=== PATIENT | male | born 1955 | race Hispanic/Latino ===

== ENCOUNTER 2018-07-13 04:20 | Emergency (ER) | payer BC ==
[~2018-07-13] VITALS: Ht 167.6 cm; Wt 65.8 kg
[2018-07-13] MEDS ORDERED: SODIUM CHLORIDE 0.9% 1000ML 1,000 ML IV ONE (05:00)
[2018-07-13] MEDS ORDERED: POTASSIUM CHLORIDE 10MEQ EA PO ONE (05:15)
--- NOTE | 2018-07-13 05:57 | Diagnostic Imaging Report ---
CT Abdomen And Pelvis with Intravenous Contrast INDICATION: Diarrhea ^[id number] ^[id number] TECHNIQUE: Thin collimation axial images obtained from the diaphragm to the level of the pubic symphysis following the uneventful administration of 100 cc of low osmolar, nonionic intravenous contrast. Dose reduction techniques used: Automated exposure control, adjustment of the mAs and/or kVp according to patient size, standardized low-dose protocol, and/or iterative reconstruction technique. RADIATION DOSE: Total DLP: 563.03 mGy*cm Estimated effective dose: (DLP x 0.015 x size factor) mSv CTDIvol has been reviewed. It is below the limits set by the Radiation Protocol Committee (RPC). COMPARISON: CT abdomen/pelvis 06/30/2011 ABDOMEN FINDINGS: Lung Bases: Multiple cystic spaces are redemonstrated measuring up to 2 cm suggestive of emphysema. Visualized portion of the mediastinum is normal. Liver: Normal attenuation. No evidence for mass. Gallbladder: Absent. No biliary ductal dilatation. Pancreas: Normal attenuation without mass or ductal dilatation. Spleen: Normal in size. No evidence of mass.. Adrenal Glands: No evidence for mass. Kidneys: Right: Normal enhancement. No soft tissue mass. No hydronephrosis. Left: Normal enhancement. No soft tissue mass. No hydronephrosis. Lymph Nodes: No enlarged abdominal or retroperitoneal lymph nodes. Aorta: Normal in diameter PELVIS FINDINGS: Bowel: Stomach: Distended with food.. Small Bowel: Fluid distended small bowel loops without dilatation. No inflammation of the small bowel mesentery.. Large Bowel: Fluid throughout. No pericolonic inflammation. No diverticulosis. Semisolid stool in the rectum.. Appendix: Normal appendix. Bladder: Mild circumferential mural thickening. The prostate gland measures 4.5 x 5.8 cm in the axial plane. Peritoneum/retroperitoneum: No free fluid or fluid collection. Bones: Mild degenerative changes of the spine. No focal osseous lesions. Soft tissues: Unremarkable. IMPRESSION: 1. Distended fluid filled small bowel loops and fluid throughout the large bowel. This is suggestive of gastroenteritis with diffuse ileus. Normal appendix. 2. Prostate hypertrophy with bladder wall thickening suggestive of outlet obstruction. 3. Cholecystectomy. Signed by: Dr. Oscar Chou MD on 07/13/2018 5:53 AM
== END 2018-07-13 06:17 | disposition home or self-care (01) ==
LOC: FSED 04:20
DX: R10.13 Epigastric pain (principal); R19.7 Diarrhea, unspecified; E87.6 Hypokalemia; E86.0 Dehydration; K52.9 Noninfective gastroenteritis and colitis, unspecified
CPT/HCPCS: 74177; 80053; 81003; 85025; 99283; J7030

== ENCOUNTER 2024-07-14 03:06 | Emergency (ER) | payer BC ==
[~2024-07-14] VITALS: Ht 165.1 cm; Wt 66.2 kg
[~2024-07-14 03:06] MED LIST: COREG6.25 MG PO; FLOMAX0.4 MG PO; LEVOCETIRIZINE D5 MG PO; LOSARTAN POTAS100 MG PO; ONDANSETRON ODT4 MG PO; PANTOPRAZOLE SO40 MG PO
[2024-07-14] MEDS: MAGNESIUM/ALUMINUM/SIMETHICONE 30 ML UDC PO ONE (04:28)
[2024-07-14] MEDS: FAMOTIDINE 20 MG TAB PO ONE (04:28)
[2024-07-14] MEDS: LIDOCAINE VISC 2% SOLN 15 ML UDC PO ONE (04:28)
[2024-07-14] MEDS ORDERED: CIPROFLOXACIN (OPTH SOLN) 5 ML BTL OP SCH (06:00)
[2024-07-14 06:02] VITALS: PULSE 68; RESP 16; TEMP 97.6
[2024-07-14] MEDS ORDERED: PEPCID20 MG PO (06:34)
[2024-07-14] MEDS ORDERED: OMEPRAZOLE40 MG PO (06:35)
[2024-07-14 06:40] VITALS: BP 160/84; PULSE 68; RESP 18; TEMP 97.6; O2SAT 98
[2024-07-14] MEDS ORDERED: VENTOLIN HFA18 GM INH (06:56)
[2024-07-14] MEDS ORDERED: PREDNISONE50 MG PO (06:57)
== END 2024-07-14 06:46 | disposition home or self-care (01) ==
LOC: FSED 03:14
DX: R10.13 Epigastric pain (principal); K21.9 Gastro-esophageal reflux disease without esophagitis; R07.89 Other chest pain; I10 Essential (primary) hypertension; J45.909 Unspecified asthma, uncomplicated; Z11.52 Encounter for screening for COVID-19; R94.31 Abnormal electrocardiogram [ECG] [EKG]
CPT/HCPCS: 0223U; 71046; 80053; 80076; 82553; 83518 ×2; 84484; 85025; 87400; 93005; 99284

== ENCOUNTER → 2024-12-10 | Outpatient (REF) | payer BC ==
[~2024-12-10] MED LIST changes: +IOPAMIDOL 370 MG/ML 100 ML INFUS..BTL INJ ONE; +METOPROLOL TARTRATE 25 MG TAB ONE; +METOPROLOL TARTRATE INJ 1 MG/ML VIAL ONE; +NITROGLYCERIN 0.4 MG SUBL ONE; +OMEPRAZOLE40 MG PO; +PEPCID20 MG PO; +PREDNISONE50 MG PO; +SODIUM CHLORIDE 0.9% 100 ML ONE; +VENTOLIN HFA18 GM INH
[2024-12-10 09:57] LABS: EST GLOMERULAR FILTRATION RATE 95.0 ML/MIN (>=60)
== END ==
LOC: CT 09:22
PROVIDERS: ATTEND Internal Medicine Cardiovascular Disease
DX: R07.9 Chest pain, unspecified (principal); R94.39 Abnormal result of other cardiovascular function study
CPT/HCPCS: 36415; 75574; 82565; 84520; J7050; Q9967